=== PATIENT | female | born 1985 | race Caucasian/White ===

== ENCOUNTER 2017-04-25 05:10 | Emergency (ER) | payer MEDICAID ==
[2017-04-25 05:11] VITALS: BMI 22.7
[2017-04-25 05:24] VITALS: BP 146/90; PULSE 83; RESP 20; TEMP 98.1; O2SAT 96
--- NOTE | 2017-04-25 05:30 | C.PDOC ---
Time Seen by Provider: 04/25/17 05:29 Chief Complaint (Nursing): ENT Problem History Per: Patient History/Exam Limitations: None Onset/Duration Of Symptoms: Days Current Symptoms Are (Timing): Still Present Quality (Mouth/Throat): Tenderness Symptoms Have Been: Continuous Severity: Moderate Pain Scale Rating Of: 3 Anticoagulant/Antiplatlet Use?: No Recent Aspirin Use: No Past Medical History Reviewed: Historical Data, Nursing Documentation, Vital Signs Vital Signs: Last Vital Signs Temp 98.1 F 04/25/17 05:19 Pulse 83 04/25/17 05:19 Resp 20 04/25/17 05:19 BP 146/90 04/25/17 05:19 Pulse Ox 96 04/25/17 05:30 - [facility] Procedures APPLICATION OF SPLINT (05/02/14) Family History: States: No Known Family Hx - Social History Hx Tobacco Use: Yes Hx Alcohol Use: No Hx Substance Use: No - Immunization History Hx Tetanus Toxoid Vaccination: Yes Hx Influenza Vaccination: No Hx Pneumococcal Vaccination: No Review Of Systems Constitutional: Negative for: Fever, Chills Eyes: Negative for: Vision Change ENT: Positive for: Throat Pain. Negative for: Ear Discharge Cardiovascular: Negative for: Chest Pain Respiratory: Negative for: Shortness of Breath Skin: Negative for: Rash Neurological: Negative for: Weakness Psych: Negative for: Anxiety Physical Exam - Physical Exam Appears: Non-toxic, No Acute Distress Skin: Warm, Dry Head: Normacephalic Eye(s): bilateral: Normal Inspection Ear(s): Bilateral: Normal Oral Mucosa: Moist Tongue: Normal Appearing Lips: Normal Appearing Teeth: Caries Throat: Erythema, No Exudate, No Drooling Neck: Trachea Midline, Supple Chest: Symmetrical Respiratory: No Rales, No Rhonchi, No Wheezing ED Course And Treatment O2 Sat by Pulse Oximetry: 96 Pulse Ox Interpretation: Normal Disposition Counseled Patient/Family Regarding: Studies Performed, Diagnosis, Need For Followup, Rx Given - Disposition Referrals: [facility] [Outside] [facility] [Outside] Disposition: HOME/ ROUTINE Disposition Time: 05:30 Condition: FAIR Prescriptions: Naproxen [Naprosyn] 1 tab PO BID PRN #25 tab PRN Reason: Pain Penicillin VK [Pen-Vee K] 2 tab PO BID #40 tab Prednisone [Deltasone] 20 mg PO DAILY #5 tablet Instructions: Pharyngitis (ED) - Clinical Impression Clinical Impression: Sore throat, Pharyngitis
== END 2017-04-25 05:48 | disposition home or self-care (01) ==
LOC: C.ER 05:10
DX: J02.9 Acute pharyngitis, unspecified (principal)

== ENCOUNTER 2017-06-14 12:30 | Emergency (ER) | payer MEDICAID ==
[2017-06-14 12:51] VITALS: BMI 21.6
--- NOTE | 2017-06-14 13:18 | RAD ---
PROCEDURE: Right Ankle Radiographs. HISTORY: r/o fx COMPARISON: None available. FINDINGS: BONES: No acute displaced fracture. JOINTS: No dislocation. SOFT TISSUES: Soft tissue swelling greatest laterally. No evidence of radiopaque foreign body. OTHER FINDINGS: None. IMPRESSION: Soft tissue swelling, greatest laterally. No acute displaced fracture, dislocation, or significant joint effusion identified. If symptoms persist or if there is clinical concern, x-ray follow-up in 7-10 days should be considered.
[2017-06-14 13:48] VITALS: BP 125/75; PULSE 108; RESP 20; TEMP 99.6; O2SAT 98
--- NOTE | 2017-06-14 16:47 | C.PDOC ---
History Of Present Illness 32 yr old female presents to the ER with complaints of right ankle pain, s/p jumping on a trampoline at 2am this morning. Patient states she is unsure how she landed on her leg. Patient is ambulating with pain. Denies head injury, back pain, leg pain, weakness or numbness. Time Seen by Provider: 06/14/17 12:53 Chief Complaint (Nursing): Lower Extremity Problem/Injury History Per: Patient History/Exam Limitations: no limitations Onset/Duration Of Symptoms: Sudden Onset (2am in the morning) Past Medical History Reviewed: Historical Data, Nursing Documentation, Vital Signs Vital Signs: Last Vital Signs Temp 99.6 F 06/14/17 13:48 Pulse 108 H 06/14/17 13:48 Resp 20 06/14/17 13:48 BP 125/75 06/14/17 13:48 Pulse Ox 98 06/14/17 16:51 - Medical History PMH: Depression - [facility] Procedures APPLICATION OF SPLINT (05/02/14) Family History: States: No Known Family Hx - Social History Hx Tobacco Use: Yes Hx Alcohol Use: No Hx Substance Use: No - Immunization History Hx Tetanus Toxoid Vaccination: Yes Hx Influenza Vaccination: No Hx Pneumococcal Vaccination: No Review Of Systems Except As Marked, All Systems Reviewed And Found Negative. Musculoskeletal: Positive for: Other ((+) Right ankle pain). Negative for: Back Pain, Leg Pain Neurological: Negative for: Weakness, Numbness Physical Exam - Physical Exam Appears: Non-toxic, No Acute Distress Skin: Warm, Dry, No Rash Head: Atraumatic, Normacephalic Oral Mucosa: Moist Chest: Symmetrical, No Tenderness Cardiovascular: Rhythm Regular, No Murmur Respiratory: Normal Breath Sounds, No Rales, No Rhonchi, No Stridor, No Wheezing Extremity: Capillary Refill (<2), Other ((+) Right lateral ankle swelling and tenderness. Decrease ROM due to pain. (-) No right knee pain. No fibular head tenderness. ) Pulses: Left Dorsalis Pedis: Normal, Right Dorsalis Pedis: Normal Neurological/Psych: Oriented x3, Normal Speech, Normal Motor, Normal Sensation ED Course And Treatment O2 Sat by Pulse Oximetry: 98 (RA ) Pulse Ox Interpretation: Normal - Other Rad X-Ray - Right Ankle X-Ray: Viewed By Me, Read By Radiologist Interpretation: PROCEDURE: Right Ankle Radiographs. HISTORY: r/o fx. COMPARISON: None available. FINDINGS: BONES: No acute displaced fracture. JOINTS: No dislocation. SOFT TISSUES: Soft tissue swelling greatest laterally. No evidence of radiopaque foreign body. OTHER FINDINGS: None. IMPRESSION: Soft tissue swelling, greatest laterally. No acute displaced fracture, dislocation, or significant joint effusion identified. If symptoms persist or if there is clinical concern, x-ray follow-up in 7-10 days should be considered. Medical Decision Making Medical Decision Making: PLAN: * X-Ray - Right Ankle * Motrin PO Disposition - Disposition Referrals: [facility] Reese Guevara, [Non-Staff] - Disposition: HOME/ ROUTINE Disposition Time: 13:20 Condition: GOOD Additional Instructions: Thank you for letting us take care of you today. Your provider was Dr. Ott. You were treated for an ankle sprain. The emergency medical care you received today was directed at your acute symptoms. If you were prescribed any medication, please fill it and take as directed. It may take several days for your symptoms to resolve. Return to the Emergency Department if your symptoms worsen, do not improve, or if you have any other problems. Please contact your doctor or call one of the physicians/clinics you have been referred to that are listed on the Patient Visit Information form that is included in your discharge packet. Bring any paperwork you were given at discharge with you along with any medications you are taking to your follow up visit. Our treatment cannot replace ongoing medical care by a primary care provider (PCP) outside of the emergency department. Thank you for allowing the [facility] team to be part of your care today. Ice the ankle for an additional 2 days. Use the crutches while you are not able to bear weight on the ankle. Follow up with your doctor in 3-4 days for re-evaluation and further management. Prescriptions: Ibuprofen [Motrin] 600 mg PO Q6 PRN #20 tab PRN Reason: Pain, Moderate (4-7) Instructions: Ankle Sprain (ED), Crutch Instructions (ED) Forms: [employer] ([employer]) - Clinical Impression Clinical Impression: Ankle sprain - Scribe Statement The provider has reviewed the documentation as recorded by the Scribe Rae De La O Provider Attestation: All medical record entries made by the Scribe were at my direction and personally dictated by me. I have reviewed the chart and agree that the record accurately reflects my personal performance of the history, physical exam, medical decision making, and the department course for this patient. I have also personally directed, reviewed, and agree with the discharge instructions and disposition.
== END 2017-06-14 13:57 | disposition home or self-care (01) ==
LOC: C.ER 12:30
DX: S93.401A Sprain of unspecified ligament of right ankle, initial encounter (principal); W17.89XA Other fall from one level to another, initial encounter; Y93.44 Activity, trampolining; Y92.9 Unspecified place or not applicable